=== PATIENT | male | born 2000 | race Caucasian/White ===

== ENCOUNTER 2018-03-05 21:07 | Emergency (ER) | payer OTHER, SELFPAY ==
[2018-03-05 21:08] VITALS: BP 128/77; PULSE 99; RESP 16; TEMP 37.2; O2SAT 99; BMI 21.9
[2018-03-05 22:05] LABS: Absolute Lymphocyte Count 1.26 X10^3/ul (0.83-4.51); Absolute Neutrophil Count 8.3 X10^3/uL (2.0-7.7); Basophil# 0.02 X10^3/uL; Basophil% 0.2 % (0-1); Eosinophil# 0.23 X10^3/uL; Eosinophils% 2.2 % (0-5); Hematocrit 51.8 % (40-54); Lymphocyte # 1.26 X10^3/ul (4.0); Lymphocyte % 11.9 % (19-41); Mean Corp Hgb Conc 35.5 g/gl (32-36); Mean Corpuscular Hgb 30.2 pg (27.0-32.0); Mean Corpuscular Volume 84.9 fL (80-94); Monocyte# 0.78 X10^3/uL; Monocyte% 7.4 % (0-10); Neutrophil # 8.28 X10^3/uL (2.7-7.7); Neutrophil % 78.1 % (47-70); Platelet Count 264 K/mm3 (150-450); RBC Distribution Width CV 13.4 % (11.6-14.6); RBC Distribution Width SD 41.1 fl (35.1-43.9); White Blood Count 10.6 K/mm3 (4.4-11.0)
[2018-03-05 22:08] LABS: Hemoglobin 18.4 g/dl (13.0-16.5); POSITIVE COUNT NO; POSITIVE DIFFERENTIAL NO; POSITIVE MORPHOLOGY NO
[2018-03-05 22:10] LABS: Anion Gap 10 (5-15); BUN 11 mg/dL (7-18); BUN/Creat Ratio 11.3 RATIO (10-20); Calcium,Total 9.4 mg/dL (8.5-10.1); Chloride 107 mmol/L (98-107); Creatinine, Serum 0.98 mg/dL (0.70-1.30); EST Glomerular Filtration Rate 104 mL/min (>60); Est Glom Filt Rate - Afr Amer 126 mL/min (>60); Glucose 121 mg/dL (74-106); Potassium 3.6 mmol/L (3.5-5.1); Sodium Level 137 mmol/L (136-145)
--- NOTE | 2018-03-05 22:14 | CT_ITS ---
STUDY: CT ABDOMEN AND PELVIS WITH CONTRAST REASON FOR EXAM: Male, 18 years old. Left lower quadrant pain RADIATION DOSAGE (If Supplied By Facility): CTDIvol = ( 8.25 ) mGy, DLP = ( 317.10 ) mGycm TECHNIQUE: Transaxial images were obtained from the dome of the diaphragm to the symphysis pubis without oral contrast. 100ML ml of Isovue 300 contrast was administered. Sagittal and coronal images were reconstructed. Individualized dose optimization techniques were used for this CT. COMPARISON: None. FINDINGS: The visualized lung bases are unremarkable. The visualized portions of the heart are within normal limits. Normal liver. Normal gallbladder and extrahepatic biliary system. Normal spleen. Normal pancreas. Normal bilateral adrenal glands. Normal right kidney. Normal left kidney. 1.2 cm anterior mid left renal cyst. Normal visualized stomach. Normal small intestine. Normal colon. The appendix is visualized and appears normal. Normal abdominal aorta. Normal inferior vena cava. Normal retroperitoneum. Normal urinary bladder. Normal abdominal wall. Normal osseous structures. CT/Abdomen/Pelvis W IV Cont ONLY IMPRESSION: Normal enhanced CT of the abdomen and pelvis. Electronically Signed: Flavio Maria MD at 23:20 EDT , Service support ,
--- NOTE | 2018-03-05 22:17 | ED.DCSUM_ITS ---
- ER Visit Summary Date of Service: 03/05/18 Chief Complaint: [] Abdominal pain and diarrhea History of Present Illness: The patient is a 18 M presents with abdominal pain since today at 3 AM gradual onset continuous left lower quadrant discomfort. Describes as a cramping that is mild. No home treatment. Associated with one episode of emesis only in the emergency department. He has had too many to count episodes of loose watery diarrhea. His last episode had some blood in it. He was at urgent care today and they told him he likely has viral gastroenteritis and to return to the ER if he worsens. No sick contacts or bad food exposures or recent antibiotics. He has a history of Crohn's disease and it has been under control since the fourth grade. He is on imuran for chronic control without any flares. No recent steroids. Physical Examination: Vital signs reviewed General: Well-nourished well-developed Head: Normocephalic atraumatic Eyes: Pupils equal round and reactive to light extraocular movements intact ENT: TMs clear no hemotympanum no trauma Neck: Nontender full range of motion Cardiovascular: Regular rate rhythm no murmurs normal S1-S2 Respiratory: No distress clear to auscultation bilaterally chest nontender Abdomen: Soft mild tenderness left lower quadrant only without any guarding or rebound. Nondistended normal bowel sounds no masses Back: Nontender no CVA tenderness Extremities: Nontender active range of motion ?4 extremities no trauma Skin: Normal color no trauma Neuro alert oriented cranial nerves II through XII intact normal strength sensation reflexes Test Results: [] Emergency Department Course and Treatment: [] Given IV fluids Zofran and Toradol. Shows hemoglobin 18.4. Chemistries normal except bicarb 20. CT of the pelvis showed nothing acute. At this time this is likely viral based diarrhea. Patient has no symptoms after treatment resting comfortably. I will give him a prescription for prednisone to use just in case this is a Crohn's flare. He will hold off on taking it for the next 48 hours. If symptoms persist or worsen he will take it and follow-up as an outpatient. Treatment Plan: [] Disposition: [] Impression: [] Gastroenteritis versus Crohn's flare This note was generated with [employer] dictation software. It may contain incorrect words, spelling, and punctuation that were not noted in review of the chart prior to signing ED Disposition - Plan for ED Patient: Chief Complaint: Abd Pain Referrals: Jeremy Frank MD [STAFF PHYSICIAN] -
[2018-03-05] MEDS: Ondansetron 4 MG/2 ML Vial IV (22:27)
[2018-03-05] MEDS: 0.9% Normal Saline 1,000 ML 1000 ML IV (22:27)
[2018-03-05] MEDS: Ketorolac 30 MG/ML Syringe IV (22:27)
[2018-03-05 23:12] VITALS: BP 116/72; PULSE 81; RESP 14; O2SAT 100
--- NOTE | 2018-03-05 23:31 | ED.DEP ---
ED Disposition - Plan for ED Patient: Disposition: Home or Assisted Living Chief Complaint: Abd Pain Instructions: Treating Diarrhea Prescriptions: Prednisone [Deltasone] 40 mg PO DAILY 10 Days #20 tab Referrals: Jeremy Frank MD [STAFF PHYSICIAN] -
== END 2018-03-05 23:56 | disposition home or self-care (01) ==
PROVIDERS: Emergency Provider Emergency Medicine; Family Provider Internal Medicine; PCP Internal Medicine
DX: K52.9 Noninfective gastroenteritis and colitis, unspecified (principal); K50.90 Crohn's disease, unspecified, without complications; Z79.899 Other long term (current) drug therapy
CPT/HCPCS: 74177; 80048; 85025; 96361; 96374; 96375; 99283; J7030; Q9967; A4216; J2405

== ENCOUNTER → 2018-04-09 15:18 | Outpatient (CLI) | payer OTHER, SELFPAY | PROVIDERS: Family Provider Internal Medicine; PCP Internal Medicine; Visit Provider Otolaryngology | DX: J02.9 Acute pharyngitis, unspecified (principal) | CPT/HCPCS: 87070 ==

== ENCOUNTER 2024-03-24 10:33 | Emergency (ER) | payer BC, SELFPAY ==
[2024-03-24 10:33] VITALS: BP 138/82; PULSE 72; RESP 18; TEMP 36.9; O2SAT 100; BMI 25.8
--- NOTE | 2024-03-24 11:18 | EDS_ITS ---
HPI <PANCHO Liu - Last Filed: 03/24/24 15:52> History of Present Illness Chief Complaint: Eye Problem Narrative Narrative: Patient presenting today with concerns that he has Welders flash to his bilateral eyes. 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 He reports that he was looking away the majority of the time while working. However, later in the evening he developed bilateral eye irritation, he reports it feels like there is a foreign body in both of his eyes. He has upper and lower lid erythema and irritation. He notes that this has gotten better since yesterday evening. He denies any loss of vision or blurred vision. He does not wear contacts or glasses. He denies any photophobia. PFSH <PANCHO Liu - Last Filed: 03/24/24 15:52> PFS Home Medications azathioprine 50 mg tablet 150 mg PO QHS 01/20/17 [History Last Taken 03/04/18] cephalexin 500 mg capsule 500 mg PO Q6 ##40 01/20/17 [Rx Last Taken Unknown] naproxen 500 mg tablet 500 mg PO BID #20 tabs 01/20/17 [Rx Last Taken Unknown] prednisone 20 mg tablet 40 mg (2 x 20 mg) PO DAILY 10 days #20 tabs 03/05/18 [Rx Last Taken Unknown] Allergy/AdvReac Type Severity Reaction Status Date / Time No Known Allergies Allergy Verified 03/24/24 10:33 Social History Smoking Status: Never smoker ROS <PANCHO Liu - Last Filed: 03/24/24 15:52> ROS ED Constitutional Constitutional ED: Denies chills or fever(s) Eyes Eyes: Reports burning and irritation; Denies blurry vision, diplopia or photophobia Cardiovascular Cardiovascular: Denies chest pain Respiratory/Chest Respiratory/Chest: Denies cough or dyspnea Gastrointestinal Gastrointestinal: Denies abdominal pain, nausea or vomiting Musculoskeletal Musculoskeletal: Denies arthralgias or myalgias Integumentary Denies rash Neurologic Neurologic: Denies weakness EXAM <PANCHO Liu Last Filed: 03/24/24 15:52> Physical Exam Const Vital Signs: 03/24/24 10:33 Temperature 98.4 F Temperature Source Temporal Pulse Rate 72 Respiratory Rate 18 Blood Pressure 138/82 H Blood Pressure Mean 100 Pulse Ox 100 Oxygen Delivery Method Room Air Positive well nourished, well developed and no apparent distress General Appearance ED: well developed HEENT Reports normocephalic and head/scalp atraumatic Mouth ED: Yes moist mucous membranes normal Eyes PERRL and EOMs intact bilaterally Eyes Narrative: Conjunctival injection, upper and lower lid erythema Neck full ROM and supple Chest Wall inspection of chest normal Resp normal respiratory effort and clear to auscultation bilaterally Cardio regular rate and regular rhythm Back/Spine normal ROM and normal to inspection Extremity normal to inspection and full ROM Neuro oriented x3, CN's II-XII intact bilaterally, moves all extremities, no focal motor deficits and no sensory deficits noted Sensorium / Orientation: awake and alert Psych mental status grossly normal and thought process normal Skin no rashes or lesions noted and no wounds [facility] <PANCHO Liu - Last Filed: 03/24/24 15:52> [facility] Narrative Medical decision making narrative: Patient presenting with concerns for Welders flash to his bilateral eyes. He has conjunctival injection and erythema to the upper and lower eyelids, visual acuity will be assessed. He denies any loss of vision or blurred vision. Fluorescein staining and slit-lamp examination performed to rule out corneal abrasion and is negative. No foreign body visualized in his eyes bilaterally. He will be given erythromycin ointment for comfort and an ophthalmology referral. Return instructions discussed and patient discharged home in stable condition. <Dr. Thom Bernard MD - Last Filed: 03/24/24 12:21> [facility] Treatment and Re-Evaluation Narrative: I have personally performed a face to face assessment of the patient and have reviewed the JEN Note. I performed a substantive portion of the visit including all aspects of the following. My sebastian findings include: History is gradual onset bilateral eye pain worse on the left than the right, and some mild sensitivity to light, started a couple hours after he was welding. He was not using a helmet. He said I was just tacking and glancing away. He states the pain is not severe but is very annoying today. Does not wear contacts. Exam is bilateral palpebral and bulbar conjunctival injection. No significant corneal dye uptake on [place] exam. Anterior chamber deep and quiet bilaterally. No ulcers. Medical Decison Making supportive care and ophthalmologic follow-up if he still has symptoms after 3 days. Will give him antibiotic ointment to use to soothe the discomfort. Other additions or changes: [None] Discharge Plan Triage Chief Complaint: Eye Problem ED Midlevel Provider: Jagruti Guillen ED Provider: Thom Bernard Dx/Rx/DC Orders Clinical Impression: Ultraviolet keratitis of both eyes Instructions: ED Flash Burn to Eye Prescriptions: No Action azathioprine 50 MG tablet 150 mg PO QHS cephalexin 500 MG capsule 500 mg PO Q6 Qty: 40 0RF naproxen 500 MG tablet 500 mg PO BID Qty: 20 0RF prednisone 20 MG tablet 40 mg PO DAILY 10 Days Qty: 20 0RF Rx Instructions: With food Primary Care Provider: Alexandra Lloyd Referrals: Karel Gutierrez MD [Med Staff - Active Staff] - 3-5 Days if not improving Alexandra Lloyd MD [Primary Care Provider] - Activity Restrictions/Additional Instructions: Follow-up with ophthalmology if no improvement of your symptoms, in the next few days. Use the ointment 2-3 times a day for the next few days for comfort as needed. Disposition Disposition: Home, Self Care Discharge Date/Time: 03/24/24 12:34
[2024-03-24] MEDS: Fluorescein 1 MG STRIP 1 STRIP LEFT EYE (11:59)
[2024-03-24] MEDS: Erythromycin Ophthalmic (NSY) 1 GM OPTH.TUBE 0.5 APPLIC EACH EYE (12:31)
[2024-03-24 12:32] VITALS: BP 124/69; PULSE 79; RESP 18; TEMP 36.6; O2SAT 100
== END 2024-03-24 12:34 | disposition home or self-care (01) ==
PROVIDERS: Emergency Provider Emergency Medicine; PCP Internal Medicine; Visit Provider Emergency Medicine
DX: H16.133 Photokeratitis, bilateral (principal); W89.0XXA Exposure to welding light (arc), initial encounter; Y99.0 Civilian activity done for income or pay
CPT/HCPCS: 99282

== ENCOUNTER → 2025-05-07 | Outpatient (CLI) | payer BC, SELFPAY ==
[2025-05-07 18:35] LABS: ALB/GLOB Ratio 1.6 RATIO (0.9-2.4); AST(SGOT) 24 U/L (<=37); Alanine Aminotransfer ALT/SGPT 19 U/L (<=46); Albumin, Serum 4.5 g/dL (3.5-5.0); Alkaline Phosphatase 92 U/L (40-129); Anion Gap 12 (5-15); BUN 8 mg/dL (4-19); BUN/Creat Ratio 8.9 RATIO (10-20); CRP 8.33 mg/L (0.0-3.0); Calcium,Total 9.4 mg/dL (7.6-11.0); Carbon Dioxide 23.5 mmol/L (21.0-32.0); Chloride 104 mmol/L (98-108); Creatinine, Serum 0.95 mg/dL (0.70-1.20); EST Glomerular Filtration Rate 113 (>60); Globulin 2.9 g/dL (2.2-4.2); Glucose 82 mg/dL (70-99); Potassium 3.7 mmol/L (3.3-5.1); Protein, Total 7.4 g/dL (5.9-8.4); Sodium Level 140 mmol/L (133-145); Total Bilirubin 0.49 mg/dL (0.00-1.30)
[2025-05-07 18:48] LABS: Absolute Lymphocyte Count 2.84 X10^3/uL (0.83-4.51); Absolute Neutrophil Count 7.5 X10^3/uL (2.0-7.7); Basophil% 0.9 % (0-1); Eosinophil# 0.31 X10^3/uL; Eosinophils% 2.7 % (0-5); Hematocrit 42.1 % (40-54); Hemoglobin 14.9 g/dL (13.0-16.5); Lymphocyte # 2.84 X10^3/ul (0.83-4.51); Lymphocyte % 24.4 % (19-41); Mean Corp Hgb Conc 35.4 g/dL (32-36); Mean Corpuscular Hgb 29.2 pg (27.0-32.0); Mean Corpuscular Volume 82.5 fL (80-94); Mean Platelet Vol. 9.2 fl (6.2-12.0); Monocyte# 0.87 X10^3/uL; Monocyte% 7.5 % (0-10); NRBC Flagged by Analyzer 0 % (0-5); Neutrophil # 7.47 X10^3/uL (2.7-7.7); Neutrophil % 63.9 % (47-70); Platelet Count 351 K/mm3 (150-450); RBC Distribution Width CV 12.6 % (11.6-14.6); RBC Distribution Width SD 37.5 fl (35.1-43.9); White Blood Count 11.7 K/mm3 (4.4-11.0)
[2025-05-07 18:52] LABS: Erythrocyte Sedimentation Rate 6 mm/hr (0-20)
== END | disposition home or self-care (01) ==
LOC: LAB 16:43
PROVIDERS: PCP Internal Medicine; Referring Provider Student in an Organized Health Care Education/Training Program; Visit Provider Student in an Organized Health Care Education/Training Program
DX: Z87.19 Personal history of other diseases of the digestive system (principal)
CPT/HCPCS: 36415; 80053; 85025; 85652; 86140

== ENCOUNTER → 2025-05-09 | Outpatient (CLI) | payer BC, SELFPAY ==
[2025-05-13 14:09] LABS: Calprotectin, Stool 70 ug/g (0-120)
== END | disposition home or self-care (01) ==
LOC: LABSPEC 15:08
PROVIDERS: PCP Internal Medicine; Referring Provider Student in an Organized Health Care Education/Training Program; Visit Provider Student in an Organized Health Care Education/Training Program
DX: Z87.19 Personal history of other diseases of the digestive system (principal)
CPT/HCPCS: 83993

== ENCOUNTER 2025-07-09 11:29 | Day surgery (SDC) | payer BC, SELFPAY ==
[2025-07-09] VITALS (7 sets, daily range): BP systolic 101–124; BP diastolic 51–79; PULSE 65–78; RESP 16; TEMP 36.3–37; O2SAT 98–100; BMI 29.0
[2025-07-09] MEDS: Lactated Ringers 1,000 ML 15 ML IV (11:47)
--- NOTE | 2025-07-09 11:51 | PCM.HP.STD ---
HPI - General General Date of Admission: 07/09/25 Date of Service: 07/09/25 Chief Complaint: Crohn's Disease HPI Narrative MELLO PENA, is a 25 M who presents with Chief Complaint: Hx of Crohns disease Pt has a PMHx of Crohns disease diagnosed in 4th grade after bidirectional endoscopy. Pt has been on Imuran and Prednisone for treatment in the past but is not currently on anything. He denies abd pain, constipation, diarrhea, or blood in his stool. he has never had any GI symptoms. Pt father and brother also with Crohns disease. He denies family hx of colon cancer. He has not had repeat endoscopy since diagnosis about 10-12 years ago. Biochemical work up; WBC H 11.7, CRP H 8.33 Stool; calprotectin normal OV 6.26.25 Pt doing well. He has no GI symptoms. Pt here to discuss further testing. PFSH Medical History Non-smoker Home Medications ?Medication ?Instructions ?Recorded ?Last Taken ?Type NK 07/07/25 Unknown History Allergy/AdvReac Type Severity Reaction Status Date / Time No Known Allergies Allergy Verified 07/09/25 11:45 Surgical History Hx of colonoscopy Social History Smoking Status: Never smoker ROS Constitutional Constitutional: Denies fatigue, fever(s), poor appetite, weight gain or weight loss Gastrointestinal Gastrointestinal: Denies belching, bloating, change in bowel habits, change in stool character, chewing difficulty, coffee ground emesis, constipation, cramping, diarrhea, dyspepsia, dysphagia, early satiety, excessive flatus, fecal incontinence, heartburn, hematemesis, hematochezia, hemorrhoids, loose stools, melena, nausea, odynophagia, rectal bleeding, tenesmus, vomiting or weight changes Vital Signs Vital Signs Vital Signs: 07/09/25 11:45 07/09/25 11:45 Temperature 98.6 F Temperature Source Temporal Pulse Rate 68 Respiratory Rate 16 Respiratory Pattern Normal Blood Pressure 124/79 H Blood Pressure Mean 94 Blood Pressure Source Monitor Blood Pressure Position Semi-Fowlers Blood Pressure Location Left Arm Pulse Ox 99 Oxygen Delivery Method Room Air Weight Weight: 180 lb Body Mass Index (BMI) 29.0 Physical Exam Const alert, oriented x3, no apparent distress and healthy appearing General Appearance: cooperative GI normal to inspection, nondistended, normoactive bowel sounds, soft to palpation, non-tender and non-distended Percussion: normal to percussion Rectal Exam: deferred Assessment & Plan Assessment/Plan (1) Hx of Crohn's disease: PLAN: Assessment and Plan Assessment and Plan (1) Hx of Crohn's disease: Status: Acute Plan: Mello is a 25 yo male pt here today for f/u regarding his hx of Crohns disease. Pt established with [facility] in April 2025 due his hx. I ordered stool testing and blood work to monitor his disease. CRP was high, ESR was normal and calprotectin was normal. With these findings I do not find it likely that he has an active flare. He will undergo colonoscopy to ensure he has not active inflammation. Last colonoscopy was many years ago at time of diagnosis. Will consider treatment pending results. -Colonoscopy -Consdier treatmetn pending results Medications: Discontinued cephalexin Discontinued Reason: Pt no longer taking 500 mg PO Q6 40 caps 0RF naproxen Discontinued Reason: Pt no longer taking 500 mg PO BID 20 tabs prednisone With food Discontinued Reason: Pt no longer taking 40 mg (2 x 20 mg) PO DAILY 10 days 20 tabs
--- NOTE | 2025-07-09 12:02 | PCM.PRE.AN2 ---
ASA Classification* ASA Classification ASA Classification: 2 (Crohn's disease) Assessment & Plan Anesthesia* Anesthesia Assessment Anesthesia Assessment: Discussed sedation and/or anesthesia options, risks, benefits, and alternatives with patient/parents/legal guardian/POA. Questions invited. The patient/parents/legal guardian/POA seems to understand and agrees to proceed with anesthesia plan. Reviewed the physical assessment, medical history, allergy history and patient home medications list prior to surgery/procedure/anesthetic and documented any changes. Performed airway and anesthesia risk assessments. Anesthesia Type Anesthesia Type: MAC History Source History Obtained from:: Patient and Chart Anesthesia Focused Assessment* Temperature: 98.6 F Pulse Rate: 68 Blood Pressure: 124/79 Respiratory Rate: 16 Pulse Ox: 99 Oxygen Delivery Method: Room Air Airway Assessment Mouth opens: >3 cm Mallampati Score: II Teeth Condition: Intact Neck Range of motion (ROM): Full ROM Labs Anesthesia Preop lab: CBC WBC 11.7 K/mm3 (4.4-11.0) H 05/07/25 16:45 05/07/25 RBC 5.10 M/mm3 (4.6-6.2) 05/07/25 16:45 05/07/25 Hgb 14.9 g/dL (13.0-16.5) 05/07/25 16:45 05/07/25 Hct 42.1 % (40-54) 05/07/25 16:45 05/07/25 Plt Count 351 K/mm3 (150-450) 05/07/25 16:45 05/07/25 CHEMISTRY Potassium 3.7 mmol/L (3.3-5.1) 05/07/25 16:45 05/07/25 Sodium 140 mmol/L (133-145) 05/07/25 16:45 05/07/25 BUN 8 mg/dL (4-19) 05/07/25 16:45 05/07/25 Creatinine 0.95 mg/dL (0.70-1.20) 05/07/25 16:45 05/07/25 Glucose 82 mg/dL (70-99) 05/07/25 16:45 05/07/25 COAG Pre-Assessment Diagnosis/Proposed Procedure Planned Operative Procedure(s): COLONOSCOPY Anesthesia History Anesthesia History - chemist inorganic: Anesthesia History - chemist inorganic Hx Hospitalization No 07/07/25 10:53 Any Problems With Anesthesia No 07/07/25 10:53 Cholinesterase deficiency No 07/07/25 10:53 You/Your Family Experience No 07/07/25 10:53 fever (hyperthermia) with Relationship Recent Exposure to Contagious No 07/09/25 11:45 Disease Does patient have nerve No 07/07/25 10:53 stimulator Patient instructed to have device shut off --Does patient have Pacemaker No 07/09/25 11:45 or ICD? When Was Last Pacemaker Check QUESTION #4 FULL TEXT: You/Your Family Experience fever (hyperthermia) with Anesthesia Last Oral Intake Last Oral intake: Last Oral Intake NPO since 08:07/09/25 11:45 Meds taken in AM with sips of water? Meds patient instructed to take am of surgery PONV PONV - chemist inorganic: PONV - chemist inorganic Female No 07/07/25 10:53 HX of Motion Sickness No 07/07/25 10:53 HX of N/V After Surgery No 07/07/25 10:53 Non-Smoker Yes 07/07/25 10:53 Duration of Surgery greater No 07/07/25 10:53 than 60 minutes Number of Risk Factors 1 07/07/25 10:53 PONV Score Low Risk 07/07/25 10:53 Height & Weight Height & Weight: Anesthesia: Height & Weight Height 5 ft 6 in 07/09/25 11:45 Weight: 81.647 kg 07/09/25 11:45 Body Mass Index (BMI) 29.0 07/09/25 11:45 Respiratory Assessment Respiratory Assessment - chemist inorganic: Respiratory Tract Infection Hx - chemist inorganic Hx Respiratory Tract Infection No 07/07/25 10:53 STOP Sleep Apnea STOP Sleep Apnea - chemist inorganic: STOP Sleep Apnea - chemist inorganic Hx Hypertension No 07/07/25 10:53 Hx Sleep Apnea No 07/07/25 10:53 CPAP BIPAP Do you snore loudly (louder No 07/07/25 10:53 than talking or can be heard Do you often feel tired/ No 07/07/25 10:53 fatigued/ sleepy during daytime? Has anyone observed you stop No 07/07/25 10:53 breathing during sleep? STOP Results Negative 07/07/25 10:53 QUESTION #5 FULL TEXT : Do you snore loudly (louder than talking or can be heard through closed doors)? Tobacco Use History Tobacco Use History - chemist inorganic: Tobacco Use History - chemist inorganic Tobacco Use Smoking Status Never smoker 07/07/25 10:53 Hx Tobacco Use No 07/07/25 10:53 Years Smoking Packs Smoked per Day Smoking Cessation Date was within the last 15 years Hx Smoking Cessation Date Hx Smoking Cessation Counseling Hematologic Medial History Hematologic Hx - chemist inorganic: Hematologic Medical Hx - shopper Hx of Blood Transfusion No 07/07/25 10:53 Hx of Transfusion in last 3 No 07/07/25 10:53 Months Date of Last Transfusion (if within last 3 months) Ever experience any problems No 07/07/25 10:53 with transfusion(s)? Specify any problems Hx of Preganancy in last 3 N/A 07/07/25 10:53 Months Nurse Filling Out Transfusion VCHRISTIN 07/07/25 10:53 & Questions: Date: 07/07/25 07/07/25 10:53 Time: 10:54 07/07/25 10:53 Patient unable to answer at this time (ie. confused, unrespo /Reproduction History /Reproductive History - chemist inorganic: /Reproductive Hx- chemist inorganic Hx Now No 07/07/25 10:53 Gestational Age (in weeks): EDC: Hx Hx Para Hx Section SAB No 07/07/25 10:53 Active Medications Active Medications: Current Medications Generic Name Dose Route Start Last Admin Trade Name Freq PRN Reason Stop Dose Admin Lactated Ringer's 1,000 mls @ 15 mls/hr 07/09/25 11:45 07/09/25 11:47 IV 15 mls/hr .Q48H JEANETH Administration PFSH Medical History Non-smoker Home Medications ?Medication ?Instructions ?Recorded ?Last Taken ?Type NK 07/07/25 Unknown History Allergy/AdvReac Type Severity Reaction Status Date / Time No Known Allergies Allergy Verified 07/09/25 11:45 Surgical History Hx of colonoscopy Social History Smoking Status: Never smoker Review of Systems (Anesthesia) ROS Narrative System reviewed and no additional complaints, except as documented.
--- NOTE | 2025-07-09 12:30 | COLBX_PTH ---
PATIENT: SHELLEY PENA LOC: EN U#:[id number] AGE/SX: 25/M ROOM: RE07/09/[address]: Dr. Piter Quinonez DO : 2000 BED: DIS: 07/09/2025 SPEC #: [id number] RECD: 07/09/25 14:13 STATUS: NIKHIL REQ #: [id number] JORJE: 07/09/25 12:[address]: Piter Quinonez DEPT: SURGICAL PATHOLOGY RECD BY: Norman Beavers ENTERED: 07/09/25 14:38 SP TYPE: COLON BX OT DR: Dr. Alexandra Lloyd MD Tissues: A - Ileum, NOS B - COLON BIOPSY C - COLON BIOPSY Procedures: Surgery Specimen Level IV HEADER OPERATION: Colonoscopy with biopsy PRE-OP DIAGNOSIS: History of Crohn's disease TISSUE SUBMITTED: A- Terminal ileum biopsy, B- I-C valve biopsy, C- Random colon biopsy MICROSCOPIC DIAGNOSIS A. Terminal ileum, biopsy: - No specific pathologic change. B. Ileocecal valve, biopsy: - No specific pathologic change. C. Colon, random, biopsy: - No specific pathologic change. MICROSCOPIC DESCRIPTION Slides are reviewed. GROSS DESCRIPTION A. Received in fixative is one container labeled with the patient's name and designated Terminal ileum biopsy. The specimen consists of three irregular fragments of light mcgee soft tissue that measure 0.2 to 0.5 cm. The specimen is totally submitted in one cassette. B. Received in fixative is one container labeled with the patient's name and designated I-C valve biopsy. The specimen consists of two irregular fragments of light mcgee soft tissue that measure 0.1 and 0.3 cm. The specimen is totally submitted in one cassette. C. Received in fixative is one container labeled with the patient's name and designated Random colon biopsy. The specimen consists of multiple irregular fragments of light mcgee soft tissue that in aggregate measure 1.9 x 0.8 x 0.1 cm. The specimen is totally submitted in one cassette. PA 07/09/2025 CPT:69019q4
--- NOTE | 2025-07-09 12:50 | OP.PROVAT_ITS ---
07/09/2025 Alexandra Lloyd [address] [place] [address] Re : Colonoscopy procedure for Mello Townsend Dear Dr. Lloyd This procedure was performed on Wednesday, July 09, 2025. My impressions and recommendations are as follows: Impressions : - The entire examined colon is normal. Biopsied. - The examined portion of the ileum was normal. Biopsied. Recommendations : - Discharge patient to home. - Patient has a contact number available for emergencies. The signs and symptoms of potential delayed complications were discussed with the patient. Return to normal activities tomorrow. Written discharge instructions were provided to the patient. - Resume previous diet. - Continue present medications. - Await pathology results. - Repeat colonoscopy in 2 years for surveillance. My findings are described in the full procedure note, which is enclosed. If I can be of further assistance, please feel free to contact me at . Sincerely, Piter Quinonez, 07/09/2025 12:50:28 PM This report has been signed electronically.
--- NOTE | 2025-07-09 12:50 | OP.COLON_ITS ---
Patient Name: Mello Townsend Procedure Date: 07/09/2025 12:25 PM Date of : 2000 Age: 25 Procedure: Colonoscopy Indications: Crohn's disease of the small bowel and colon Providers: Piter Quinonez DO Referring MD: Alexandra Lloyd Medicines: Monitored Anesthesia Care Patient Profile: This is a 25 year old male. Refer to note in patient chart for documentation of history and physical. Last Colonoscopy: several years ago. Complications: No immediate complications. Procedure: Pre-Anesthesia Assessment: - Prior to the procedure, a History and Physical was performed, and patient medications and allergies were reviewed. The patient is competent. The risks and benefits of the procedure and the sedation options and risks were discussed with the patient. All questions were answered and informed consent was obtained. Patient identification and proposed procedure were verified by the physician in the pre-procedure area. Mental Status Examination: alert and oriented. Airway Examination: normal oropharyngeal airway and neck mobility. Respiratory Examination: clear to auscultation. CV Examination: normal. Prophylactic Antibiotics: The patient does not require prophylactic antibiotics. Prior Anticoagulants: The patient has taken no anticoagulant or antiplatelet agents except for NSAID medication. ASA Grade Assessment: II - A patient with mild systemic disease. After reviewing the risks and benefits, the patient was deemed in satisfactory condition to undergo the procedure. The anesthesia plan was to use monitored anesthesia care (MAC). Immediately prior to administration of medications, the patient was re-assessed for adequacy to receive sedatives. The heart rate, respiratory rate, oxygen saturations, blood pressure, adequacy of pulmonary ventilation, and response to care were monitored throughout the procedure. The physical status of the patient was re-assessed after the procedure. After I obtained informed consent, the scope was passed under direct vision. Throughout the procedure, the patient's blood pressure, pulse, and oxygen saturations were monitored continuously. The Colonoscope was introduced through the anus and advanced to the terminal ileum. The colonoscopy was performed without difficulty. The patient tolerated the procedure well. The quality of the bowel preparation was adequate. The terminal ileum, ileocecal valve, appendiceal orifice, and rectum were photographed. Scope In: 12:35:37 PM Scope Withdrawal Time 0 hours 8 minutes 47 seconds Scope Out: 12:45:44 PM Total Procedure Duration Time 0 hours 10 minutes 7 seconds Findings: The perianal and digital rectal examinations were normal. Pertinent negatives include normal sphincter tone. The colon (entire examined portion) appeared normal. Biopsies were taken with a cold forceps for histology. Verification of patient identification for the specimen was done. Estimated blood loss was minimal. The terminal ileum appeared normal. Biopsies were taken with a cold forceps for histology. Verification of patient identification for the specimen was done. Estimated blood loss was minimal. Impression: - The entire examined colon is normal. Biopsied. - The examined portion of the ileum was normal. Biopsied. Recommendation: - Discharge patient to home. - Patient has a contact number available for emergencies. The signs and symptoms of potential delayed complications were discussed with the patient. Return to normal activities tomorrow. Written discharge instructions were provided to the patient. - Resume previous diet. - Continue present medications. - Await pathology results. - Repeat colonoscopy in 2 years for surveillance. Procedure Code(s): --- Professional --- 63610, Colonoscopy, flexible; with biopsy, single or multiple CPT copyright 2021 [employer]. All rights reserved. The codes documented in this report are preliminary and upon electrician locomotive review may be revised to meet current compliance requirements. Piter Quinonez DO 07/09/2025 12:50:28 PM This report has been signed electronically. Number of Addenda: 0 Note Initiated On: 07/09/2025 12:25 PM
--- NOTE | 2025-07-09 12:55 | PCM.POST.ANE ---
Anesthesia: Postop Eval I Current Vital Signs Temperature: 97.5 F Pulse Rate: 70 Blood Pressure: 106/51 Respiratory Rate: 16 Pulse Ox: 98 Oxygen Delivery Method: Room Air Assessment Airway patent: Yes Spontaneous unlabored respirations: Yes Mental status: Asleep nausea: No Vomiting: No Anesthesia Complication: No Fluid Hydration Crystalloid volume administer (ml): 500 Total IV fluid infused: 500 Progress Note Anesthesia document: Postop Eval 1 completed: Yes
--- NOTE | 2025-07-09 16:30 | PCM.POSTANE2 ---
Anesthesia Postop Eval I Sum Postop Eval Completion status Anesthesia document: Postop Eval 1 completed: Yes Anesthesia Postop Eval I Summary Anesthesia Postop Eval I Summary: Anesthesia Postop Eval I: Assessment Summary Airway patent Yes 07/09/25 12:55 [email or web address] Spontaneous unlabored Yes 07/09/25 12:55 [email or web address] respirations Mental status Asleep 07/09/25 12:55 [email or web address] nausea No 07/09/25 12:55 [email or web address] Vomiting No 07/09/25 12:55 [email or web address] Anesthesia Postop Eval I: Fluid Summary Crystalloid volume administer 500 07/09/25 12:55 [email or web address] (ml) Colloids volume administered ( ml) Blood Product volume administered (ml) Total IV fluid infused 500 07/09/25 12:55 [email or web address] Anesthesia Postop Eval I: Summary Notes Anesthesia Complication No 07/09/25 12:55 [email or web address] Anesthesia Complication Comment: Post-operative progress note Anesthesia: Postop Eval II Evaluation Mental status: Awake Pain Level: 0 nausea: No Vomiting: No
== END 2025-07-09 13:28 | disposition home or self-care (01) ==
LOC: EN 11:30 → AC 11:31
PROVIDERS: PCP Internal Medicine; Referring Provider Internal Medicine; Visit Provider Internal Medicine Gastroenterology
PROC: 0DJD8ZZ Inspection of Lower Intestinal Tract, Via Natural or Artificial Opening Endoscopic (ICD-10-PCS; CPT 45378; principal; 2025-07-09 12:25)
DX: K50.90 Crohn's disease, unspecified, without complications (principal)
CPT/HCPCS: 45380; 88305; J2405